=== PATIENT | female | born 1930 | race Caucasian/White ===

== ENCOUNTER → 2016-09-11 | Outpatient (CLI) | payer MEDICARE | END | disposition home or self-care (01) | LOC: RAD 13:52 | PROVIDERS: ATTEND Orthopaedic Surgery | DX: S32.591A Other specified fracture of right pubis, initial encounter for closed fracture (principal); Z96.643 Presence of artificial hip joint, bilateral; M24.7 Protrusio acetabuli; M51.36 Other intervertebral disc degeneration, lumbar region; X58.XXXA Exposure to other specified factors, initial encounter; Y93.89 Activity, other specified; Y92.89 Other specified places as the place of occurrence of the external cause; Y99.8 Other external cause status | CPT/HCPCS: 72192 ==